=== PATIENT | male | born 1960 | race Caucasian/White ===

== ENCOUNTER 2017-09-02 14:34 | Emergency (ER) | payer OTHER ==
[~2017-09-02] VITALS: Ht 177.8 cm; Wt 74.4 kg
[2017-09-02 16:45] LABS: ABSOLUTE BASOPHIL COUNT 0.1 /CUMM (0.0-0.2); ABSOLUTE EOSINOPHIL COUNT 0 /CUMM (0.0-0.7); ABSOLUTE GRANULOCYTE CT 3.8 /CUMM (1.4-6.5); ABSOLUTE LYMPH COUNT 1.4 /CUMM (1.2-3.4); ABSOLUTE MONOCYTE COUNT 0.3 /CUMM (0.10-0.60); BASOPHIL % 0.9 % (0.0-2.0); EOSINOPHIL % 0.5 % (0-5); GRANULOCYTE % 68.7 % (42.2-75.2); HEMATOCRIT 41.7 % (42-52); MEAN CORPUSCULAR HGB 33.6 PG (27.0-31.0); MEAN CORPUSCULAR HGB CONC 34.1 G/DL (33.0-37.0); MEAN CORPUSCULAR VOLUME 98.7 FL (80.0-94.0); MEAN PLATELET VOLUME 8.1 FL (7.4-10.4); PLATELET COUNT 157 /CUMM (130-400); RBC DISTRIBUTION WIDTH 12.4 % (11.5-14.5); RED BLOOD CELL CT 4.23 /CUMM (4.70-6.10); WHITE BLOOD CELL COUNT 5.6 /CUMM (4.8-10.8)
--- NOTE | 2017-09-02 18:35 | ED GI/GU/ABDOMINAL COMPLAINT ---
History of Present Illness General Chief Complaint: Nausea, Vomiting, Diarrhea Stated Complaint: +NVD X 3 WEEKS Source: patient Exam Limitations: no limitations Vital Signs & Intake/Output Vital Signs & Intake/Output Vital Signs Date Time Temp Pulse Resp B/P B/P Pulse O2 O2 Flow FiO2 Mean Ox Delivery Rate 09/02 1624 98.4 76 18 148/89 98 Room Air 09/02 1445 97.2 113 20 150/110 94 Room Air Allergies Coded Allergies: No Known Allergies (09/02/17) Triage Note: PT TO ED C/O N/V/D X 3 WEEKS. PT WAS IN REHAB FOR OPIATE DETOX, HAS BEEN HOME FOR 1 WEEK. STATES HE HAD THESE S/S WHILE IN REHAB. DENIES USING ANY OPIATES SINCE DISCHARGE FROM REHAB. C/O UPPER ABD PAIN. Triage Nurses Notes Reviewed? yes Onset: Gradual Duration: week(s):, continues in ED, waxing and waning Quality/Severity: severe HPI: Patient presents for evaluation of inability to eat, inability to sleep, diarrhea, dizziness, nausea and abdominal pain. Patient called his primary care doctor's office today and was told to go to the emergency department for evaluation. Patient states that he spent 2 weeks in a rehabilitation facility for opiate dependence having left about one week ago. He left early because he wasn't feeling any better. Patient denies bright red rectal bleeding or melena. He denies drug or alcohol use. Past History Travel History Traveled to [place] past 21 day No Medical History Any Pertinent Medical History? see below for history Surgical History Surgical History: non-contributory Psychosocial History What is your primary language Swedish Tobacco Use: Quit >30 days ago ETOH Use: denies use Illicit Drug Use: denies illicit drug use Family History Hx Contributory? No Review of Systems Review of Systems Constitutional: Reports: see HPI. EENTM: Reports: no symptoms. Respiratory: Reports: no symptoms. Cardiovascular: Reports: no symptoms. GI: Reports: see HPI. Genitourinary: Reports: no symptoms. Musculoskeletal: Reports: no symptoms. Skin: Reports: no symptoms. Neurological/Psychological: Reports: no symptoms. Hematologic/Endocrine: Reports: no symptoms. Immunologic/Allergic: Reports: no symptoms. All Other Systems: Reviewed and Negative Physical Exam Physical Exam Gastrointestinal: SEE BELOW Comments: Gen.: Well-nourished, well-developed, no acute respiratory distress. Head: Normocephalic, atraumatic. Eyes: Normal inspection bilaterally Ears: Normal inspection bilaterally Nose: Normal inspection Throat/mouth : Moist mucosa Neck: Supple, full range of motion, no goiter Heart: Regular rate and rhythm, no murmurs rubs or gallops Lungs: Clear to auscultation bilaterally with normal air entry Chest: Nontender Back: Normal range of motion Abdomen: Soft, right upper quadrant/epigastric tenderness with brief voluntary guarding but no rebound, nondistended, normal bowel sounds, no clinical hepatosplenomegaly Extremities: Normal range of motion grossly, equal radial pulses, no cyanosis clubbing or edema Neurologic: Cranial nerves grossly intact, speech is clear Skin: warm and dry Psychiatric: Calm, cooperative, no apparent delusions or hallucinations Core Measures ACS in differential dx? No Sepsis Present: No Sepsis Focused Exam Completed? No Progress Differential Diagnosis: biliary colic, diverticulitis, pancreatitis, nonspecific abdominal pain, withdrawal symptoms, dehydration, electrolyte abnormality Plan of Care: Orders Procedure Date/time Status URINE DRUGS OF ABUSE 09/02 154 Complete URINALYSIS 09/02 154 Complete LIPASE 09/02 154 Complete COMPREHENSIVE METABOLIC PANEL 09/02 154 Complete CBC WITHOUT DIFFERENTIAL 09/02 154 Complete Laboratory Tests 09/02/17 1626: Urine Opiates Screen < 100, Methadone Screen < 40, Barbiturate Screen < 60, Ur Phencyclidine Scrn < 6.00, Amphetamines Screen < 100, U Benzodiazepines Scrn > 800 H, Urine Cocaine Screen < 50, Urine Cannabis Screen < 5.00, Urinalysis LIGHT H, Urine Color YEL, Urine Clarity CLEAR, Urine pH 8.5 H, Ur Specific [place] 1.020, Urine Protein 30 H, Urine Ketones TRACE H, Urine Nitrite NEG, Urine Bilirubin NEG, Urine Urobilinogen 0.2, Ur Leukocyte Esterase NEG, Ur Microscopic SEDIMENT EXAMINED, Urine RBC RARE, Urine WBC RARE, Ur Epithelial Cells RARE, Urine Bacteria RARE H, Urine Mucus MANY H, Urine Hemoglobin NEG, Urine Glucose NEG 09/02/17 1623: Anion Gap 13, Estimated GFR > 60, BUN/Creatinine Ratio 16.3, Glucose 105 H, Calcium 9.8, Total Bilirubin 0.8, AST 75 H, ALT 82 H, Alkaline Phosphatase 102 , Total Protein 7.8, Albumin 4.2, Globulin 3.6, Albumin/Globulin Ratio 1.2, Lipase 553 H, CBC w Diff NO MAN DIFF REQ, RBC 4.23 L, MCV 98.7 H, MCH 33.6 H , MCHC 34.1, RDW 12.4, MPV 8.1, Gran % 68.7, Lymphocytes % 25.0, Monocytes % 4.9 , Eosinophils % 0.5, Basophils % 0.9, Absolute Granulocytes 3.8, Absolute Lymphocytes 1.4, Absolute Monocytes 0.3, Absolute Eosinophils 0, Absolute Basophils 0.1 Diagnostic Imaging: Discussed w/RAD: CT Scan. Radiology Impression: PATIENT: WILY GARCIA PRESENT AGE: 57 PATIENT ACCOUNT NO: [id number] : 56 LOCATION: [facility] ORDERING PHYSICIAN: Jonel Thompson MD SERVICE DATE: 09/02/17 EXAM TYPE: CAT - CT ABD & PELVIS W IV CONTRAST EXAMINATION: CT ABDOMEN AND PELVIS WITH CONTRAST CLINICAL INFORMATION: Epigastric pain and tenderness. COMPARISON: None TECHNIQUE : Multidetector volumetric imaging was performed of the abdomen and pelvis following IV administration of 95 mL of Optiray 320 intravenous contrast. Sagittal and coronal reformatted images were obtained on the technologist's workstation. DLP: 283.2 mGy-cm FINDINGS: LUNG BASES: The visualized lung bases are unremarkable. LIVER, GALLBLADDER, AND BILIARY TREE: There is low attenuation of liver parenchyma due to fatty change. No focal liver lesion. No intrapelvic bile duct dilatation. Gallbladder is contracted. There is no bile duct dilatation. PANCREAS: Unremarkable. SPLEEN: Unremarkable. ADRENAL GLANDS: Unremarkable. KIDNEYS AND URETERS: The kidneys are normal in size, shape, and attenuation. No hydronephrosis, hydroureter, or calculi seen. No perinephric stranding. BLADDER: Unremarkable. GASTROINTESTINAL TRACT: There is diverticulosis of the colon. Numerous diverticula of the sigmoid and descending colon. No diverticulitis. No acute change of the bowel. No bowel obstruction. No bowel wall thickening or edema. Moderate amount of scattered stool in the colon. The appendix is normal. The small bowel loops are normal. ABDOMINAL WALL: No significant hernia is appreciated. LYMPH NODES: Normal. VASCULAR: Scattered vascular wall calcification of aorta and iliac vessels without aneurysm. PELVIC VISCERA: Coarse calcification within the prostate. Prostate measures 3 cm transverse. OSSEOUS STRUCTURES: Unremarkable. IMPRESSION: No acute abnormality CT scan abdomen and pelvis. The pancreas is normal. There is mild diffuse fatty change of the liver. 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 <Electronically signed in Other Vendor System> SIGNED BY: Bebo Munoz MD 09/02/171913 Initial ED EKG: none Comments: 09/02/2017 8:18:40 PM I have updated Wily on his test results. I will provide prescriptions for opiate withdrawal symptoms and he will follow up with his primary care physician. Departure Departure Disposition: HOME OR SELF CARE Condition: Stable Clinical Impression Primary Impression: Withdrawal symptoms, drug or narcotic Qualifiers: Substance type: opioid Qualified Code: F11.23 - Opioid dependence with withdrawal Secondary Impressions: Abdominal pain Qualifiers: Abdominal location: upper abdomen, unspecified Qualified Code: R10.10 - Upper abdominal pain, unspecified Referrals: Anupam PEARSON,Zachery Suggs (PCP/Family) Departure Forms: Customer Survey General Discharge Information Prescriptions: Current Visit Scripts Ondansetron (Zofran Odt) 1 TAB SL Q6 PRN NAUSEA/VOMITING #10 TAB Hyoscyamine (Levsin) 1-2 TAB PO Q6P PRN ABDOMINAL CRAMPS #20 TAB Clonidine HCl 1 TAB PO BID PRN withdrawal symptoms #10 TAB
--- NOTE | 2017-09-02 19:14 | CT SCAN REPORT ---
EXAMINATION: CT ABDOMEN AND PELVIS WITH CONTRAST CLINICAL INFORMATION: Epigastric pain and tenderness. COMPARISON: None TECHNIQUE: Multidetector volumetric imaging was performed of the abdomen and pelvis following IV administration of 95 mL of Optiray 320 intravenous contrast. Sagittal and coronal reformatted images were obtained on the technologist's workstation. DLP: 283.2 mGy-cm FINDINGS: LUNG BASES: The visualized lung bases are unremarkable. LIVER, GALLBLADDER, AND BILIARY TREE: There is low attenuation of liver parenchyma due to fatty change. No focal liver lesion. No intrapelvic bile duct dilatation. Gallbladder is contracted. There is no bile duct dilatation. PANCREAS: Unremarkable. SPLEEN: Unremarkable. ADRENAL GLANDS: Unremarkable. KIDNEYS AND URETERS: The kidneys are normal in size, shape, and attenuation. No hydronephrosis, hydroureter, or calculi seen. No perinephric stranding. BLADDER: Unremarkable. GASTROINTESTINAL TRACT: There is diverticulosis of the colon. Numerous diverticula of the sigmoid and descending colon. No diverticulitis. No acute change of the bowel. No bowel obstruction. No bowel wall thickening or edema. Moderate amount of scattered stool in the colon. The appendix is normal. The small bowel loops are normal. ABDOMINAL WALL: No significant hernia is appreciated. LYMPH NODES: Normal. VASCULAR: Scattered vascular wall calcification of aorta and iliac vessels without aneurysm. PELVIC VISCERA: Coarse calcification within the prostate. Prostate measures 3 cm transverse. OSSEOUS STRUCTURES: Unremarkable. IMPRESSION: No acute abnormality CT scan abdomen and pelvis. The pancreas is normal. There is mild diffuse fatty change of the liver.
[2017-09-02] MEDS ORDERED: CLONIDINE HCL0.1 MG PO (20:21)
[2017-09-02] MEDS ORDERED: LEVSIN0.125 M1 PO (20:21)
[2017-09-02] MEDS ORDERED: ZOFRAN ODT4 M1 SL (20:21)
[2017-09-02 20:23] VITALS: BP 158/95
== END 2017-09-02 20:36 ==
LOC: ERH 14:34
PROVIDERS: Physician Assistant Medical
DX: F11.23 Opioid dependence with withdrawal (principal); R10.10 Upper abdominal pain, unspecified
CPT/HCPCS: 74177; 80307; 81001; 96361; 96374; J2405